=== PATIENT | female | born 1995 | race Caucasian/White ===

== ENCOUNTER 2022-05-22 11:34 | Emergency (ER) | payer OTHER ==
[2022-05-22] MEDS ORDERED: LORazepam 1 MG Tab PO ONE (11:56)
[2022-05-22 12:34] LABS: CARBON DIOXIDE,CO2 28.4 mmol/L (21.0-32.0); POTASSIUM,K 3.7 mmol/L (3.5-5.1)
== END 2022-05-22 13:51 | disposition home or self-care (01) ==
LOC: MW.ED 11:34
DX: R07.89 Other chest pain (principal)
CPT/HCPCS: 36415; 71045; 80053; 84484; 85025; 93005; 99285; A9270